=== PATIENT | female | born 1980 | race Caucasian/White ===

== ENCOUNTER 2016-11-01 15:36 | Emergency (ER) | payer MEDICAID ==
[~2016-11-01] VITALS: Ht 170.2 cm; Wt 93.7 kg
[~2016-11-01 15:36] MED LIST: CYAN1TAB29 PO; LISI-167 PO; METH500T97 PO; MULT-6 PO; OXYC-229 PO
[2016-11-01 15:45] VITALS: BP 149/86
[2016-11-01] MEDS ORDERED: ONDANSETRON ODT 4 MG PO ONE (17:00)
[2016-11-01] MEDS ORDERED: HYDROmorphone 1 MG/ML, 1ML IM ONE ×2 (17:00→17:30)
[2016-11-01] MEDS ORDERED: HYDROmorphone 1 MG/ML, 1ML ONE ×2 (17:09→17:46)
[2016-11-01] MEDS ORDERED: ONDANSETRON ODT 4 MG ONE (17:09)
== END 2016-11-01 18:08 | disposition home or self-care (01) ==
LOC: ED 18:02
DX: M54.42 Lumbago with sciatica, left side (principal); M62.81 Muscle weakness (generalized); G89.29 Other chronic pain; F11.10 Opioid abuse, uncomplicated
CPT/HCPCS: 96372; 99284; J1170; J7512; Q0162

== ENCOUNTER 2016-11-20 21:29 | Emergency (ER) | payer MEDICAID ==
[~2016-11-20] VITALS: Ht 170.2 cm; Wt 97.4 kg
[2016-11-20] MEDS ORDERED: DIPHENHYDRAMINE 50 MG/ML, 1ML ONE (22:52)
[2016-11-20] MEDS ORDERED: KETOROLAC 30 MG/1 ML ONE (22:52)
[2016-11-20] MEDS ORDERED: PROCHLORPERAZINE 5 MG/ML, 2ML ONE (22:54)
[2016-11-20] MEDS ORDERED: KETOROLAC 30 MG/1 ML IVPush ONE (23:00)
[2016-11-20] MEDS ORDERED: PROMETHAZINE 25 MG/ML, 1ML IM ONE (23:00)
[2016-11-20] MEDS ORDERED: PROCHLORPERAZINE 5 MG/ML, 2ML IV ONE (23:00)
[2016-11-20] MEDS ORDERED: DIPHENHYDRAMINE 50 MG/ML, 1ML IVPush ONE (23:00)
[2016-11-21] MEDS ORDERED: KETOROLAC 30 MG/1 ML ONE (00:03)
[2016-11-21] MEDS ORDERED: DIPHENHYDRAMINE 50 MG/ML, 1ML ONE (00:03)
[2016-11-21] MEDS ORDERED: PROCHLORPERAZINE 5 MG/ML, 2ML ONE (00:03)
[2016-11-21 01:23] VITALS: BP 153/81
== END 2016-11-21 01:25 | disposition home or self-care (01) ==
LOC: ED 23:40
DX: G43.009 Migraine without aura, not intractable, without status migrainosus (principal)
CPT/HCPCS: 96374; 96375; 99284; J0780; J1200; J1885

== ENCOUNTER 2016-12-30 15:49 | Emergency (ER) | payer MEDICAID ==
[~2016-12-30] VITALS: Ht 170.2 cm; Wt 93.4 kg
[2016-12-30 16:07] VITALS: BP 148/93
[2016-12-30] MEDS ORDERED: HYDROmorphone 1 MG/ML, 1ML IM STA ×2 (16:37→17:21)
[2016-12-30] MEDS ORDERED: HYDROmorphone 1 MG/ML, 1ML ONE ×2 (16:51→17:15)
== END 2016-12-30 17:52 | disposition home or self-care (01) ==
LOC: ED 17:15
DX: M54.5 Low back pain (principal); M54.6 Pain in thoracic spine; M25.552 Pain in left hip; M25.551 Pain in right hip; G89.29 Other chronic pain; G43.909 Migraine, unspecified, not intractable, without status migrainosus; Z90.49 Acquired absence of other specified parts of digestive tract; M54.30 Sciatica, unspecified side
CPT/HCPCS: 96372; 99284; J1170

== ENCOUNTER 2017-01-22 16:19 | Emergency (ER) | payer MEDICAID ==
[~2017-01-22] VITALS: Ht 170.2 cm; Wt 97.1 kg
[2017-01-22 16:22] VITALS: BP 163/89
[2017-01-22] MEDS ORDERED: TRAZ150T68 PO (16:35)
[2017-01-22] MEDS ORDERED: HYDROmorphone 1 MG/ML, 1ML IM ONE ×2 (17:00→18:00)
[2017-01-22] MEDS ORDERED: HYDROmorphone 1 MG/ML, 1ML ONE ×2 (17:05→18:01)
== END 2017-01-22 18:10 | disposition home or self-care (01) ==
LOC: ED 18:00
DX: G89.29 Other chronic pain (principal); M54.5 Low back pain; M25.552 Pain in left hip; M54.32 Sciatica, left side
CPT/HCPCS: 96372; 99284; J1170